=== PATIENT | male | born 1950 | race Caucasian/White ===

== ENCOUNTER 2017-02-13 05:37 | Day surgery (SDC) | payer OTHER, MEDICARE ==
[~2017-02-13] VITALS: Ht 167.6 cm; Wt 76.7 kg
--- NOTE | ~2017-02-13 | S ---
[facility] [address] [place] [address] SURGICAL PATH RPT PROCEDURE Name: MIGUEL GILL Room #: DEP [facility]..#: [id number] Admission: 02/13/17 Date of : 50 Discharge: 02/13/17 Report #: [id number] Path Case #: [id number] PATHOLOGY REPORT COLLECTION DATE: 02/13/2017 RECEIVED DATE: 02/13/2017 SUBMITTING PHYS: Dr. Param Garcia OTHER PHYS: SPECIMEN(S) RECEIVED: A.Left occipital node dissection B.Left spinal accessory sentinel nodes C.Melanoma left lateral scalp * * * * * * * * * * * * FINAL DIAGNOSIS: A. "Left occipital node dissection," dissection: - Lymph node (1) with no evidence of metastatic melanoma (1 node). - Skeletal muscle with mild reactive changes. B. "Left spinal accessory sentinel nodes," dissection: - Lymph nodes (2) with no evidence of metastatic melanoma (2 nodes). - Benign capsular nevus cells present in one lymph node. C. "Melanoma left lateral scalp," wide re-excision: - Skin and subcutaneous tissue with previous biopsy site changes; no residual melanoma present. COMMENT: The patient has a history of "melanoma with a Breslow tumor thickness of 0.8 mm and pre-existing nevus, melanoma in situ 0.8 mm from side margin, melanoma approximates deep margin" with a synoptic stating: procedure type-shave; histologic type-melanoma, not otherwise specified; maximum tumor thickness-0.8 mm; surface ulceration-absent; dermal mitotic rate-1/mm2; lymphvascular invasion-not identified; perineural invasion-not identified; tumor regression-not identified; macroscopic satellite nodules-not identified; microsatellitosis-not identified; tumor size-5 mm; pathologic staging (AJCC 7th edition)-T1b; from a previous left posterior scalp shave biopsy ([facility] Pathology [id number], 01/15/17; biopsy report reviewed only, no slide review performed). Properly controlled immunohistochemical stains are performed. (Block A1) S-100: negative for metastatic melanoma MART-1: negative for metastatic melanoma HMB-45: negative for metastatic melanoma (Block B1) S-100: negative for metastatic melanoma, highlights capsular nevus cells [facility] [address] [place] [address] SURGICAL PATH RPT PROCEDURE Name: MIGUEL GILL Room #: DEP [facility]..#: [id number] Admission: 02/13/17 Date of : 50 Discharge: 02/13/17 Report #: [id number] Path Case #: [id number] MART-1: negative for metastatic melanoma, highlights capsular nevus cells HMB-45: negative for metastatic melanoma, capsular nevus cells are non-reactive MART-1 (C6) negative for residual melanoma MART-1 (C7) negative for residual melanoma MART-1 (C8) negative for residual melanoma The pathologic staging remains T1b, N0. Clinical correlation is recommended. Block B1 with immunos is co-reviewed with Dr. Precious Padilla. (CLW:; 02/17/2017) PATHOLOGIST: Veronika Cabrera M.D. REPORT ELECTRONICALLY SIGNED BY: Veronika Cabrera M.D. DATE/TIME: 02/17/2017 16:43 * * * * * * * * * * * * GROSS PATHOLOGY: A. received in formalin labeled "Miguel Gill, left the septal node dissection" and consists of ragged red probable skeletal muscle that measures 2.5 x 1.3 x 0.4 cm. Sectioning reveals no obvious lymph node candidates. The specimen is totally submitted A1-A3. B. received in formalin labeled "Miguel Gill, left spinal accessory sentinel nodes and consists of 2 pink lymph node candidates each averaging 0.5 x 0.4 x 0.4 cm. There is totally submitted as B1. C. received in formalin labeled "Miguel Gill, melanoma left lateral scalp suture at 12:00, anterior" and consists of an oval skin excision oriented with suture as described that measures 4.0 cm 9-3:00, 3.9 cm 12-6:00, and excised to a maximum depth of 0.7 cm. There is a central red-purple lesion identified and measures 0.4 x 0.3 cm, and grossly clears all margins by 1.5 cm. The margin is inked as follows, 12-3 yellow, 3-6 blue, and 6-12 black. Sectioning reveals no parenchymal lesions. The specimen is totally submitted C1-C 11 C1 tips/ends C2-C11 remainder of specimen submitted sequentially 12-6:00 (SHANELL; 02/13/2017) CLINICAL HISTORY: Scalp malignant melanoma INITIAL CPT CODE(S): A; 23043, 27159, 89512, 54267, 85043 B; 95734, 61015, 61521, 64464 C; 24029, 90579 Professional services performed by [employer] at [facility] [address] [place] [address] SURGICAL PATH RPT PROCEDURE Name: MIGUEL GILL Room #: DEP [facility].#: [id number] Admission: 02/13/17 Date of : 50 Discharge: 02/13/17 Report #: [id number] Path Case #: [id number], [place] [address] Technical services performed by [employer] at [address] [place] [address], [facility] [address], [place] [address]. [facility] [address] [place] [address] PHONE: [phone] DIRECTOR: Roberto Carlos Chen M.D. * * * END OF REPORT * * *
--- NOTE | ~2017-02-13 | O ---
[facility] [place] [address] OPERATIVE REPORT Name: MICHAEL PEÑALOZA Room #: DEP [facility]..#: [id number] Admission: 02/13/17 Attend Phys: Param Garcia MD Discharge: 02/13/17 Date of : 50 Report #: [id number] THIS REPORT FOR: //name// CC: Dr. Ilana Garcia Physician staff FERNANDO Paige MD DATE OF SERVICE: 02/13/2017 PREOPERATIVE DIAGNOSES: Malignant melanoma, left parietal scalp. POSTOPERATIVE DIAGNOSES: Malignant melanoma, left parietal scalp. OPERATION PERFORMED: 1. Wide local excision, melanoma of scalp 4 cm. 2. Full thickness skin graft, left flank to left scalp, 4 x 4 cm. 3. Laurens lymph node biopsy of the left neck x 3. SURGEON: Param Garcia MD ANESTHESIA: General endotracheal. 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 Preciado's office. This was a Breslow thickness 0.8 mm with a satellite melanoma in situ 0.8 mm from the site margin. Recommendations were made for definitive wide local excision as this was a sentinel node biopsy for unknown depth. DESCRIPTION OF PROCEDURE: The patient was brought to the operating room and placed supine on the operating table. After adequate general anesthesia was achieved via endotracheal intubation, he was turned in the prone position and turned 180 degrees. Using the gamma probe, the sentinel nodes were found. There was an uptake in the occipital region as well as uptake along the left spinal accessory nerve. These areas were marked and then injected with 1% Xylocaine with 1:100,000 epinephrine. The 2 cm margins were marked around the gross melanoma and injected with 1% Xylocaine with 1:100,000 epinephrine. The patient was then prepped and draped in a sterile fashion. [address] [address] OPERATIVE REPORT Name: MICHAEL PEÑALOZA Room #: DEP [facility]..#: [id number] Admission: 02/13/17 Attend Phys: Param Garcia MD Discharge: 02/13/17 Date of : 50 Report #: [id number] Procedure began with a sentinel lymph node biopsy beginning in the left occipital region and a linear incision was made over the site of uptake with the gamma probe. This was dissected down to the underlying subcutaneous fat. Meticulous dissection was done in this area down to the underlying muscle, but no obvious lymph node was found. Interestingly as the dissection progressed, the uptake with the gamma probe cease to uptake. I am wondering if this represented more of a blood vessel. This fat, however, was removed. Hemostasis assured with bipolar cautery. This was then closed in layers with interrupted 4-0 Vicryl deep dermal sutures and eladia on skin followed by Mastisol, Steri-Strips, and an Op-Site. No drain was needed. Attention was then turned more inferior to the site of increased uptake along the left spinal accessory nerve and an incision was made, dissection was carried down to the underlying spinal accessory nerve, which was easily found. This was then dissected to protect it; 2 lymph nodes were running with it. They did uptake with the gamma probe. Ten second counts were done on both identifying complete removal. These were delivered in the same specimen cup as specimen left spinal accessory. Hemostasis was then assured with bipolar cautery and then, this was closed in layers with interrupted 4-0 Vicryl deep dermal sutures and eladia on skin followed by a Mastisol, Steri-Strips and an Op-Site. Once this was completed, attention was then turned to the full thickness graft. It was elected to use his back flank. I knew that the excision would be 4 cm. This was marked out in a template and then, the triangles extended to facilitate a fusiform closer. The skin was then harvested full thickness and placed in a soaked saline. The skin was widely undermined and then, the flank incision closed on itself with interrupted 3-0 Vicryl deep dermals and then eladia on skin. Mastisol and Steri-Strips were applied followed by an occlusive dressing. Attention was then turned to the scalp. The melanoma was then excised taking 2 mm margins. The margin at 12 o'clock was marked with a silk suture anterior and then, the melanoma excised full thickness down to the subcutaneous tissue. This was delivered off the field as specimen in formalin. The harvested graft was then defatted and then placed in the defect. This was sutured in place with 4-0 chromic and then tailored to size to fit the defect exactly. Once this was in position, 2-0 silk ties were then placed peripherally around the incision. A dressing was then made with Xeroform and cotton soaked in mineral oil. This was folded on itself and then a tie-over bolster dressing was made to hold the graft in place with 2-0 silks. No other dressing was needed. The patient was then returned to anesthesia, awake without difficulty and returned to recovery in good condition. Sponge and needle counts were correct. There were no complications. Blood loss was about 50 mL. He will be watched until awake and stable, presuming he does well and discharged to home with plans to follow up me in 1 week. Written and verbal discharge instructions and emergency precautions have been given to his . DISCHARGE MEDICATIONS: Include Keflex 500 mg b.i.d. for 10 days, [facility] [address] [place] [address] OPERATIVE REPORT Name: MICHAEL PEÑALOZA Room #: [facility].#: [id number] Admission: 02/13/17 Attend Phys: Param Garcia MD Discharge: 02/13/17 Date of : 50 Report #: [id number] hydrocodone/acetaminophen 7.5/325 one to two q.4-6h. p.r.n., Phenergan suppository 25 mg 1 per rectum q.4-6h. p.r.n. He is instructed on light activity and a soft diet and water precautions for the bolster dressing. <ELECTRONICALLY SIGNED> By: Param Garcia MD 02/20/17 [id number] Param Garcia MD /nt
[~2017-02-13 05:37] MED LIST: ASPIR 8181 M1 PO; CARVEDILOL6.25 MG; FENOFIBRATE160 MG PO; FISH OIL 1,001000 M2 PO; GLUCOSAMINE CH1 EAC2 PO; KEFLEX500 M1 PO; PRAVACHOL40 MG PO; PROBIOTIC1 EAC1 PO; ZESTORETIC 20-1 EAC3 PO
[2017-02-13 10:11] VITALS: BP 120/59
[2017-02-13 15:09] VITALS: BP 120/59
== END 2017-02-13 16:43 | disposition home or self-care (01) ==
LOC: OR 05:37 → TBA 05:37 → OR 12:39
DX: D23.4 Other benign neoplasm of skin of scalp and neck (principal); L98.8 Other specified disorders of the skin and subcutaneous tissue; I10 Essential (primary) hypertension; E78.00 Pure hypercholesterolemia, unspecified; Z96.653 Presence of artificial knee joint, bilateral; Z98.890 Other specified postprocedural states; Z79.899 Other long term (current) drug therapy
CPT/HCPCS: 50010; 50101; 50386; 50403; 51412; 51609; 56524; 56526; 56527; 57006; 62110; 62900; 70005